=== PATIENT | female | born 1985 | race American Indian/Alaskan Native ===

== ENCOUNTER 2018-03-10 13:42 | Emergency (ER) | payer SELFPAY ==
[2018-03-10 13:55] VITALS: BP 138/95
[2018-03-10 14:55] LABS: Basophils % (Auto) 0.7 % (0.0-1.8); Eosinophils % (Auto) 0.3 % (0.0-4.3); Hematocrit 41.8 % (30.3-42.9); Hemoglobin 13.6 gm/dl (10.1-14.3); Lymphocytes % (Auto) 26.4 % (13.4-35.0); Mean Corpuscular HGB Conc 33 % (30-34); Mean Corpuscular Hemoglobin 28 pg (28-32); Mean Corpuscular Volume 85 fl (79-97); Monocytes # (Auto) 0.5 K/mm3 (0.0-0.8); Monocytes % (Auto) 6.1 % (0.0-7.3); Platelet Count 334 K/mm3 (140-440); Red Blood Count 4.91 M/mm3 (3.65-5.03); Red Cell Distribution Width 13.6 % (13.2-15.2)
[2018-03-10 15:07] LABS: Bilirubin,Urine NEG (Negative); Blood,Urine NEG (Negative); Color,Urine Yellow (Yellow); Mucus,Urine 2+ /HPF; Urobilinogen,Urine < 2.0 mg/dL (<2.0)
[2018-03-10 15:09] LABS: BUN/Creatinine Ratio 13; Blood Urea Nitrogen 10 mg/dL (7-17); Calcium 10.2 mg/dL (8.4-10.2); Hemolysis Index 8
[2018-03-10 15:15] LABS: Amphetamine Screen,Urine PRESUMPTIVE NEGATIVE; Benzodiazepines Screen,Urine PRESUMPTIVE NEGATIVE; Cannabinoid Screen,Urine PRESUMPTIVE NEGATIVE; Cocaine Screen,Urine PRESUMPTIVE NEGATIVE; Methadone Screen,Urine PRESUMPTIVE NEGATIVE; Opiate Screen,Urine PRESUMPTIVE NEGATIVE
[2018-03-10] MEDS ORDERED: ATIVAN PO ONE (20:39)
--- NOTE | 2018-03-10 22:38 | Emergency Department Report ---
ED Psych HPI - General Chief Complaint: Psych Stated Complaint: BIPOLAR, PARANIOD Time Seen by Provider: 03/10/18 19:12 Source: patient Mode of arrival: Ambulatory - Related Data Home Medications Medication Instructions Recorded Confirmed Last Taken Divalproex Dr [DepDenisseTE ] 500 mg PO BID 03/10/18 03/10/18 03/10/18 Lisinopril/Hydrochlorothiazide 1 each PO DAILY 03/10/18 03/10/18 03/10/18 [Zestoretic 10-12.5 mg Tablet] Allergies Allergy/AdvReac Type Severity Reaction Status Date / Time peaches Allergy Rash Uncoded 03/10/18 13:47 ED Review of Systems ROS: Stated complaint: BIPOLAR, PARANIOD Other details as noted in HPI ED Past Medical Hx - Past Medical History Previous Medical History?: Yes Hx Hypertension: Yes Hx Psychiatric Treatment: Yes (Bipolar) Additional medical history: Hypothyroidism - Surgical History Past Surgical History?: Yes Additional Surgical History: Oral surgery - Social History Smoking Status: Never Smoker Substance Use Type: Prescribed - Medications Home Medications: Home Medications Medication Instructions Recorded Confirmed Last Taken Type Divalproex Dr [DepaKOTE DR] 500 mg PO BID 03/10/18 03/10/18 03/10/18 History Lisinopril/Hydrochlorothiazide 1 each PO DAILY 03/10/18 03/10/18 03/10/18 History [Zestoretic 10-12.5 mg Tablet] ED Physical Exam - General Limitations: No Limitations ED Course Vital Signs 03/10/18 13:49 Temperature 97.8 F Pulse Rate 101 H Respiratory 20 Rate Blood Pressure 138/95 O2 Sat by Pulse 100 Oximetry ED Medical Decision Making - Lab Data Result diagrams: 03/10/18 14:17 03/10/18 14:17 Critical care attestation.: If time is entered above; I have spent that time in minutes in the direct care of this critically ill patient, excluding procedure time. ED Disposition Clinical Impression: Paranoid behavior, History of anxiety disorder Disposition: DC-01 TO HOME OR SELFCARE Is pt being admited?: No Does the pt Need Aspirin: No Condition: Stable Instructions: Paranoid Personality Disorder (ED), Anxiety (ED) Additional Instructions: be sure to follow up with your psychiatrist tomorrow (Dr Hanna Benavidez) return sooner if worse or if any further concerns Referrals: SAUL HARDING MD [Primary Care Provider] - 3-5 Days Time of Disposition: 22:28
== END 2018-03-10 23:30 | disposition home or self-care (01) ==
LOC: ED 13:42
DX: F60.0 Paranoid personality disorder (principal); F31.9 Bipolar disorder, unspecified; I10 Essential (primary) hypertension; E03.9 Hypothyroidism, unspecified
CPT/HCPCS: 36415; 80048; 80307; 81001; 84443; 84703; 85025; 99284; G0480; 80320